=== PATIENT | female | born 1975 | race Caucasian/White ===

== ENCOUNTER 2022-02-04 09:18 | Emergency (ER) | payer SELFPAY ==
[~2022-02-04] VITALS: Ht 158 cm; Wt 64.2 kg
[2022-02-04 09:19] VITALS: BP 159/98
--- NOTE | 2022-02-04 09:28 | NUR ---
Patient ambulated to bed 6.
--- NOTE | 2022-02-04 09:28 | NUR ---
COVID, FLU SWABS DONE.
--- NOTE | 2022-02-04 09:28 | NUR ---
Janes lazar in [facility] - 02/04/22 at 0931 by [email or web address] PT AMB TO BED 4
--- NOTE | 2022-02-04 09:58 | NUR ---
46 y/o female bib self with c/o sore throat, cough and subjective fever x 2 days. Denies any sick contacts. Denies chills or SOB. Patient has a productive cough. Patient has been taking Tylenol for subjective fever. Medical History: HTN NKDA
[2022-02-04] MEDS ORDERED: AZITHROMYCIN 250 MG TAB PO ONE (10:00)
[2022-02-04] MEDS ORDERED: predniSONE 20 MG TAB PO ONE (10:00)
[2022-02-04] MEDS ORDERED: ALBUTEROL SULFATE/IPRATROPIU 3 ML SOL IH ONE (10:00)
--- NOTE | 2022-02-04 10:05 | NUR ---
Dr. Christensen evaluating patient at bedside.
[2022-02-04 11:17] VITALS: BP 159/98
--- NOTE | 2022-02-04 11:17 | NUR ---
Patient discharged with v/s stable. Written and verbal after care instructions given and explained. Patient verbalized understanding. Ambulatory with steady gait. All questions addressed prior to discharge. Advised to follow up with PMD. copy of labs given
== END 2022-02-04 11:17 | disposition home or self-care (01) ==
LOC: MED 09:18
DX: U07.1 COVID-19 (principal)
CPT/HCPCS: 99283